=== PATIENT | male | born 1990 | race Caucasian/White ===

== ENCOUNTER 2020-08-26 11:18 | Emergency (ER) | payer OTHER, SELFPAY ==
[2020-08-26 11:20] VITALS: BP 134/86; PULSE 70; RESP 16; TEMP 36.5; O2SAT 99; BMI 22.9
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
[2020-08-26] MEDS: BACITRACIN OINT 0.9 GM PCKT 1 APPLIC TOP (12:57)
[2020-08-26] MEDS: LIDO 1%/SOD BICARB 8.4% (10ML) 10 ML SYRINGE INJ (12:58)
[2020-08-26 14:19] VITALS: BP 125/75; PULSE 70; RESP 14; O2SAT 100
== END 2020-08-26 14:19 | disposition home or self-care (01) ==
PROVIDERS: Emergency Provider Nurse Practitioner Family
DX: S61.412A Laceration without foreign body of left hand, initial encounter (principal); M79.642 Pain in left hand; W19.XXXA Unspecified fall, initial encounter
CPT/HCPCS: 12001; 64450; 73130; 99283